=== PATIENT | female | born 1955 | race African-American/Black ===

== ENCOUNTER 2018-05-22 15:35 | Inpatient (IN) | payer OTHER ==
[2018-05-22 19:37] VITALS: BMI 27.9
--- NOTE | 2018-05-22 20:42 | HP ---
CIWA Score - Admission Criteria OASAS Guidelines: Admission for Medically Managed Detox: Requires at least one of the followin. CIWA greater than 12 2. Seizures within the past 24 hours 3. Delirium tremens within the past 24 hours 4. Hallucinations within the past 24 hours 5. Acute intervention needed for co occurring medical disorder 6. Acute intervention needed for co occurring psychiatric disorder 7. Severe withdrawal that cannot be handled at a lower level of care (continued vomiting, continued diarrhea, abnormal vital signs) requiring intravenous medication and/or fluids 8. Admission ROS S - HPI Chief Complaint: " I am here for rehab" Allergies/Adverse Reactions: Allergies Allergy/AdvReac Type Severity Reaction Status Date / Time No Known Allergies Allergy Verified 05/22/18 20:37 History of Present Illness: 63 yo female with hx of alcohol dependence, patient reports was discharged today from [facility] after suffering DTS d/t alcohol withdrawal. PMHX: HTN, Gastric Ulcer, GERD, Anemia, Vertigo, OA (b/l), chronic back pain, CO ( 15 years ago), asthma, depression, insomnia. Denies suicidal / homicidal ideation. Denies hx of seizures, reports hx frequent falls and blackouts r/t to alcohol use. Exam Limitations: No Limitations - Ebola screening Have you traveled outside of the country in the last 21 days: No Have you had contact with anyone from an Ebola affected area: No Have you been sick,other than usual withdrawal symptoms: No - Review of Systems Constitutional: Loss of Appetite, Night Sweats ("going through menopause"), Changes in sleep, Other (" hot flashes") EENT: reports: Cataracts (left eye) Respiratory: reports: See HPI Cardiac: reports: No Symptoms Reported GI: reports: Poor Appetite, Poor Fluid Intake : reports: No Symptoms Reported Musculoskeletal: reports: See HPI, Back Pain, Joint Pain Integumentary: reports: No Symptoms Reported Neuro: reports: See HPI, Dizziness Endocrine: reports: Increased Thirst Hematology: reports: Anemia Psychiatric: reports: Orientated x3, Anxious Other Systems: Reviewed and Negative Patient History - Patient Medical History Hx Anemia: Yes Hx Asthma: Yes Hx Chronic Obstructive Pulmonary Disease (COPD): No Hx Cancer: No Hx Cardiac Disorders: No (hx of CO 15 years ago ) Hx Congestive Heart Failure: No Hx Hypertension: Yes Hx Hypercholesterolemia: No Hx Pacemaker: No HX Cerebrovascular Accident: No Hx Seizures: No Hx Dementia: No Hx Diabetes: No Hx Gastrointestinal Disorders: Yes (GERD, GAstric Ulcer ) Hx Liver Disease: No Hx Genitourinary Disorders: No Hx Sexually Transmitted Disorders: No Hx Renal Disease (ESRD): No Hx Thyroid Disease: No Hx Human Immunodeficiency Virus (HIV): No Hx Hepatitis C: No Hx Depression: Yes Hx Suicide Attempt: No Hx Bipolar Disorder: No Hx Schizophrenia: No Other Medical History: hx of HSV 1 - Patient Surgical History Past Surgical History: Yes Other Surgical History: tubal ligation x 40 years ago - PPD History Previous Implant?: No Documented Results: Negative w/o proof PPD to be Administered?: Yes - Reproductive History Patient is a Female of Child Bearing Age (11 -55 yrs old): No - Smoking Cessation Smoking history: Never smoked Hx Chewing Tobacco Use: No Initiated information on smoking cessation: No - Substance & Tx. History Hx Alcohol Use: Yes Hx Substance Use: Yes Substance Use Type: Alcohol Hx Substance Use Treatment: Yes (Completed detox at [facility] ) - Substances Abused alcohol Route: Oral Frequency: Daily Amount used: one fith of liquor Age of first use: 21 Date of Last Use: 05/12/18 Family Disease History - Family Disease History Family Disease History: Other: Father (alcoholism, liver cirrhosis ), Mother ( alcoholism ), Brother (alcoholism ), Sister (alcoholism ) Admission Physical Exam S - Vital Signs Vital Signs: Vital Signs - 24 hr 05/22/18 19:24 Temperature 98.4 F Pulse Rate 85 Respiratory 18 Rate Blood Pressure 115/75 - Physical General Appearance: Yes: Nourished, Appropriately Dressed, Anxious HEENTM: Yes: EOMI, Hearing grossly Normal, Normal ENT Inspection, Normocephalic , Normal Voice, JOHN, Pharynx Normal, Tm's normal Respiratory: Yes: Chest Non-Tender, Lungs Clear, Normal Breath Sounds, No Respiratory Distress, No Accessory Muscle Use Neck: Yes: Within Normal Limits Breast: Yes: Breast Exam Deferred Cardiology: Yes: Regular Rhythm, Regular Rate Abdominal: Yes: Normal Bowel Sounds, Non Tender, Flat, Soft Genitourinary: Yes: Within Normal Limits Back: Yes: Normal Inspection, Vertebral Tenderness (patient reorts chronic pain d/t herniated disc) Musculoskeletal: Yes: full range of Motion, Gait Steady, Pelvis Stable, Back pain, Other (uses rollator to ambulate) Extremities: Yes: Normal Capillary Refill, Normal Inspection, Normal Range of Motion Neurological: Yes: display director II-XII NML intact, Fully Oriented, Alert, Motor Strength 5/5, Depressed Affect Integumentary: Yes: Normal Color, Dry, Warm Lymphatic: Yes: Within Normal Limits - Diagnostic (1) Alcohol dependence Current Visit: Yes Status: Acute Qualifiers: Substance use status: uncomplicated Qualified Code(s): F10.20 - Alcohol dependence, uncomplicated (2) Walker as ambulation aid Current Visit: Yes Status: Chronic (3) Asthma Current Visit: Yes Status: Chronic Qualifiers: Asthma severity: mild Asthma complication type: unspecified (4) Hypertension Current Visit: Yes Status: Chronic Qualifiers: Hypertension type: essential hypertension Qualified Code(s): I10 - Essential (primary) hypertension (5) Hx of myocardial infarction Current Visit: Yes Status: Chronic (6) GERD (gastroesophageal reflux disease) Current Visit: Yes Status: Chronic Qualifiers: Esophagitis presence: without esophagitis Qualified Code(s): K21.9 - Gastro -esophageal reflux disease without esophagitis (7) Chronic back pain Current Visit: Yes Status: Acute (8) Arthritis Current Visit: Yes Status: Chronic BHS Breath Alcohol Content Breath Alcohol Content: 0 Urine Pregancy Test - Result Urine Test Results: Negative- NO Line Present Urine Drug Screen - Results Drug Screen Negative: No Urine Drug Screen Results: MET-Methamphetamine Inpatient Rehab Admission - Rehab Decision to Admit Inpatient rehab admission?: Yes - Initial Determination Are CD services needed?: Yes Free of communicable disease: Yes Not in need of hospitalization: Yes - Rehab Admission Criteria Previous failed treatment: Yes Poor recovery environment: Yes Comorbidities: Yes Lacks judgement: Yes Patient is meeting Inpatient Rehab admission criteria:: Yes
[2018-05-22] MEDS ORDERED: ALBUTEROL SO4 2.5/IPRATROPIUM 0.5 INH SOL 3 ML VIAL.NEB. NEB PRN (20:59)
[2018-05-22] MEDS ORDERED: P-EPHED 60MG/TRIPROLIDI 2.5MG TABLET PO PRN (21:01)
[2018-05-22] MEDS ORDERED: MAGNESIUM CITRATE 300 ML BOTTLE PO PRN (21:01)
[2018-05-22] MEDS ORDERED: hydrOXYzine PAMOATE 25 MG CAPSULE (FP) PO PRN (21:01)
[2018-05-22] MEDS ORDERED: guaiFENesin/D-METHORPHAN HB 10 ML UNIT-DOSE CUPS PO PRN (21:01)
[2018-05-22] MEDS ORDERED: ACETAMINOPHEN 325 MG TABLET (FP) PO PRN (21:01)
[2018-05-22] MEDS ORDERED: IBUPROFEN 400 MG TABLET (FP) PO PRN (21:01)
[2018-05-22] MEDS ORDERED: MAG HYDROX/AL HYDROX/SIMETH 30 ML UNIT-DOSE CUP PO PRN (21:01)
[2018-05-22] MEDS ORDERED: MENTHOL/PHENOL 1 EACH UD MM PRN (21:01)
[2018-05-22] MEDS ORDERED: MAGNESIUM HYDROX 2400MG/30ML ORAL SUSPENSION 30 ML CUP PO PRN (21:01)
[2018-05-22] MEDS ORDERED: LOPERAMIDE HCL 2 MG CAPSULE PO PRN (21:01)
[2018-05-22] MEDS ORDERED: TUBERCULIN PPD 5 TU/0.1ML VIAL ID ONE (23:53)
[2018-05-22] MEDS: LABETALOL HCL 100 MG TABLET (FP) PO SCH (23:54)
[2018-05-22] MEDS: THIAMINE HCL 100 MG TABLET (FP) PO SCH (23:55)
[2018-05-22] MEDS: LIDOCAINE PATCH REMOVAL MC SCH (23:55)
[2018-05-22] MEDS: ALBUTEROL SO4 8 GM HFA INHALER IH SCH (23:56)
[2018-05-22] MEDS: BUDESONIDE/FORMETEROL FUMARATE 160/4.5 mcg INHALER IH SCH (23:58)
[2018-05-23] MEDS: ALBUTEROL SO4 8 GM HFA INHALER IH SCH ×3 (01:34→11:40)
[2018-05-23] MEDS ORDERED: ALBUTEROL SO4 8 GM HFA INHALER IH PRN (09:50)
[2018-05-23] MEDS: ASPIRIN 81 MG CHEWABLE TABLETS PO SCH (09:52)
[2018-05-23] MEDS: LABETALOL HCL 100 MG TABLET (FP) PO SCH ×2 (09:52→21:46)
[2018-05-23] MEDS: PRENATAL VITAMINS W/ FOLIC ACID TABLET (FP) PO SCH (09:52)
[2018-05-23] MEDS: NIFEdipine E.R. 90 MG TABLET (FP) PO SCH (09:53)
[2018-05-23] MEDS: LIDOCAINE 5% TOPICAL PATCH TP SCH (09:54)
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
[2018-05-23] MEDS ORDERED: PANTOPRAZOLE 20 MG TABLET (FP) PO SCH (10:00)
[2018-05-23] MEDS ORDERED: COLLOIDAL OATMEAL 1 BAR EACH TP PRN (10:33)
[2018-05-23] MEDS ORDERED: TRIMETHOBENZAMIDE HCL 200MG/2ML INJ IM ONE (10:56)
[2018-05-23] MEDS ORDERED: ONDANSETRON 4 MG TABLET PO PRN (10:57)
--- NOTE | 2018-05-23 11:42 | EKG ---
Test Reason : Blood Pressure : / mmHG Vent. Rate : 075 BPM Atrial Rate : 075 BPM P-R Int : 194 ms QRS Dur : 078 ms QT Int : 434 ms P-R-T Axes : 046 001 037 degrees QTc Int : 484 ms NORMAL SINUS RHYTHM NORMAL ECG NO PREVIOUS ECGS AVAILABLE Confirmed by Valerio Amanda MD ([id number]) on 05/23/2018 11:41:42 AM Referred By: JOHN JEFFERS Confirmed By:Valerio Amanda MD
[2018-05-23] MEDS: LORATADINE 10 MG TABLET PO SCH (11:55)
[2018-05-23 12:42] LABS: ALBUMIN 3.6 g/dl (3.4-5.0); ALK PHOS 43 U/L (45-117); ANION GAP 6 MMOL/L (8-16); BILIRUBIN,TOTAL 0.4 mg/dL (0.2-1); BLOOD UREA NITROGEN 10 mg/dL (7-18); CALCIUM 9.3 mg/dL (8.5-10.1); CHLORIDE 104 mmol/L (98-107); CO2 30 mmol/L (21-32); CREATININE 0.7 mg/dL (0.55-1.3); GLUCOSE,RANDOM 85 mg/dL (74-106); POTASSIUM 4.3 mmol/L (3.5-5.1); SGOT/AST 99 U/L (15-37); SGPT/ALT 56 U/L (13-61); SODIUM 140 mmol/L (136-145)
[2018-05-23 12:51] LABS: URINE APPEARANCE CLEAR; URINE BILIRUBIN NEGATIVE (<2.0 mg/dL); URINE COLOR YELLOW; URINE GLUCOSE (UA) NEGATIVE (NEGATIVE); URINE KETONE NEGATIVE (NEGATIVE); URINE LEUK ESTERASE NEGATIVE (NEGATIVE); URINE NITRITE NEGATIVE (NEGATIVE); URINE PROTEIN NEGATIVE (NEGATIVE)
[2018-05-23 13:10] LABS: HEMATOCRIT 33.8 % (32.4-45.2); HEMOGLOBIN 11.8 GM/dL (10.7-15.3); MCH 38.4 pg (25.7-33.7); MCHC 34.9 g/dl (32.0-36.0); MEAN CELL VOLUME 109.8 fl (80-96); MEAN PLT VOLUME 7.5 fl (7.5-11.1); PLATELET COUNT 227 K/MM3 (134-434); RBC 3.08 M/mm3 (3.60-5.2); RDW 16.8 % (11.6-15.6); WHITE BLOOD COUNT 5.2 K/mm3 (4.0-10.0)
[2018-05-23] MEDS: BUDESONIDE/FORMETEROL FUMARATE 160/4.5 mcg INHALER IH SCH ×2 (13:10→21:46)
[2018-05-23 13:14] LABS: EPI CELLS RARE /HPF (FEW); URINE MUCUS RARE
[2018-05-23] MEDS: SODIUM CHLORIDE NASAL SPRAY 44 ML BOTTLE NS SCH ×2 (13:14→21:46)
--- NOTE | 2018-05-23 13:38 | PN ---
[facility] Progress Note Note: PATIENT SEEN FOR DISCUSSION OF STARTING VIVITROL AND FOR C/O NAUSEA AND VOMITING. PATIENT EVALUATED WHILE IN BED. ALERT AND ORIENTED X 3, +SWEATING. DENIES CHEST PAIN, SOB AND DIZZINESS. ADMITTED TO REHAB 05/22/18 FOR ETOH DEPENDENCE AFTER BEING DETOXED AT [facility]. PATIENT D/C WITH NALTREXONE PRESCRIPTION BUT DID NOT START MEDICATION. PATIENT STATES SHE IS MOTIVATED TO START VIVITROL AND GROUP TREATMENT. Laboratory Tests 05/23/18 05/23/18 05/23/18 08:30 08:30 08:30 WBC 5.2 RBC 3.08 L Hgb 11.8 Hct 33.8 MCV 109.8 H MCH 38.4 H MCHC 34.9 RDW 16.8 H Plt Count 227 MPV 7.5 Sodium 140 Potassium 4.3 Chloride 104 Carbon Dioxide 30 Anion Gap 6 L BUN 10 Creatinine 0.7 Creat Clearance w eGFR > 60 POC Glucometer Random Glucose 85 Calcium 9.3 Total Bilirubin 0.4 AST 99 H ALT 56 Alkaline Phosphatase 43 L Total Protein 7.0 Albumin 3.6 Urine Color Urine Appearance Urine pH Ur Specific [place] Urine Protein Urine Glucose (UA) Urine Ketones Urine Blood Urine Nitrite Urine Bilirubin Urine Urobilinogen Ur Leukocyte Esterase Urine WBC (Auto) Urine RBC (Auto) Ur Epithelial Cells Urine Mucus RPR Titer Nonreactive 05/23/18 05/23/18 10:00 11:26 WBC RBC Hgb Hct MCV MCH MCHC RDW Plt Count MPV Sodium Potassium Chloride Carbon Dioxide Anion Gap BUN Creatinine Creat Clearance w eGFR POC Glucometer 137 Random Glucose Calcium Total Bilirubin AST ALT Alkaline Phosphatase Total Protein Albumin Urine Color Yellow Urine Appearance Clear Urine pH 6.0 Ur Specific [place] 1.013 Urine Protein Negative Urine Glucose (UA) Negative Urine Ketones Negative Urine Blood 1+ H Urine Nitrite Negative Urine Bilirubin Negative Urine Urobilinogen 2.0 H Ur Leukocyte Esterase Negative Urine WBC (Auto) 2 Urine RBC (Auto) 1 Ur Epithelial Cells Rare Urine Mucus Rare RPR Titer Vital Signs - 24 hr 05/22/18 05/23/18 05/23/18 19:24 00:05 03:30 Temperature 98.4 F 98.0 F Pulse Rate 85 84 Respiratory 18 18 18 Rate Blood Pressure 115/75 132/84 05/23/18 05/23/18 05/23/18 07:34 09:17 11:21 Temperature 97.6 F 97.5 F L Pulse Rate 78 81 97 H Respiratory 18 18 Rate Blood Pressure 118/76 118/81 187/117 H 05/23/18 12:05 Temperature Pulse Rate 85 Respiratory Rate Blood Pressure 149/94 PE: ALERT AND ORIENTED X 3 SKIN +DIAPHORETIC CAR S1S2 RRR, BP 187/117 (RIGHT AFTER VOMITING) RESP CTA BL EXT NO TREMORS OBSERVED A/P: N/V EPISODIC HTN ETOH DEPENDENCE TIGAN 2OOMG IM X ONE GIVEN ZOFRAN ORDERED PRN PATIENT GIVEN LABETOLOL ORDERED, REPEAT BP 1/2 HR AFTER VOMITING 149/94 PATIENT REFERRED TO COUNSELING TO CONNECT TO MD/OUT PATIENT PROGRAM THAT CAN CONTINUE VIVITROL POST DISCHARGE WILL MONITOR CLINICALLY DUE TO ELEVATED BP X 24 HRS, IF STABLE AND CONNECTED TO PROGRAM, WILL START NALTREXONE IN AM
[2018-05-23] MEDS ORDERED: RANITIDINE HCL 150 MG TABLET (FP) PO ONE (14:53)
--- NOTE | 2018-05-23 16:02 | PN ---
[facility] Progress Note Note: PT C/O CHRONIC DRY SKIN-ECZEMA AND WANTS AVEENO SOAP. PT REPORTS HX OF RIGHT VEIN SURGERY X 2 AND SCHEDULED TO DO LEFT LEG LATER. REQUESTING JACOB BANDAGE BECAUSE SHE FORGOT HER STOCKINGS. REPORTS HX OF CHRONIC NASAL CONGESTION AND ON FLONASE AND LORATADINE Vital Signs 05/23/18 05/23/18 05/23/18 09:17 11:21 12:05 Temperature 97.5 F L Pulse Rate 81 97 H 85 Respiratory 18 Rate Blood Pressure 118/81 187/117 H 149/94 Laboratory Tests 05/23/18 05/23/18 05/23/18 08:30 08:30 08:30 WBC 5.2 RBC 3.08 L Hgb 11.8 Hct 33.8 MCV 109.8 H MCH 38.4 H MCHC 34.9 RDW 16.8 H Plt Count 227 MPV 7.5 Sodium 140 Potassium 4.3 Chloride 104 Carbon Dioxide 30 Anion Gap 6 L BUN 10 Creatinine 0.7 Creat Clearance w eGFR > 60 POC Glucometer Random Glucose 85 Calcium 9.3 Total Bilirubin 0.4 AST 99 H ALT 56 Alkaline Phosphatase 43 L Total Protein 7.0 Albumin 3.6 Urine Color Urine Appearance Urine pH Ur Specific [place] Urine Protein Urine Glucose (UA) Urine Ketones Urine Blood Urine Nitrite Urine Bilirubin Urine Urobilinogen Ur Leukocyte Esterase Urine WBC (Auto) Urine RBC (Auto) Ur Epithelial Cells Urine Mucus RPR Titer Nonreactive 05/23/18 05/23/18 10:00 11:26 WBC RBC Hgb Hct MCV MCH MCHC RDW Plt Count MPV Sodium Potassium Chloride Carbon Dioxide Anion Gap BUN Creatinine Creat Clearance w eGFR POC Glucometer 137 Random Glucose Calcium Total Bilirubin AST ALT Alkaline Phosphatase Total Protein Albumin Urine Color Yellow Urine Appearance Clear Urine pH 6.0 Ur Specific [place] 1.013 Urine Protein Negative Urine Glucose (UA) Negative Urine Ketones Negative Urine Blood 1+ H Urine Nitrite Negative Urine Bilirubin Negative Urine Urobilinogen 2.0 H Ur Leukocyte Esterase Negative Urine WBC (Auto) 2 Urine RBC (Auto) 1 Ur Epithelial Cells Rare Urine Mucus Rare RPR Titer NAD OOB AMBULATING VARICOSE VEINS LOWER EXTREMITIES HX ALLERGIC RHINITIS ECZEMA PLAN:ELEVATE LEG IN BED KARAN STOCKINGS OR JACOB IF NOT AVAILABLE AVEENO SOAP CLARITIN 10 MG PO DAILY
[2018-05-23] MEDS: ONDANSETRON *ODT* 4 MG TABLET SL PRN (16:28)
[2018-05-23] MEDS: THIAMINE HCL 100 MG TABLET (FP) PO SCH (21:44)
[2018-05-23] MEDS: LIDOCAINE PATCH REMOVAL MC SCH (21:46)
[2018-05-23] MEDS: RANITIDINE HCL 150 MG TABLET (FP) PO SCH (21:46)
[2018-05-23] MEDS: MELATONIN 5 MG TABLETS PO PRN (21:47)
[2018-05-24] MEDS ORDERED: PT OWN MED DRAWER 7, Y5N ONE (08:27)
[2018-05-24] MEDS ORDERED: MINERAL OIL/PETROLAT/WATER TOPICAL CREAM 113 GM JAR TP SCH (10:00)
[2018-05-24] MEDS: LORATADINE 10 MG TABLET PO SCH (10:08)
[2018-05-24] MEDS: ASPIRIN 81 MG CHEWABLE TABLETS PO SCH (10:08)
[2018-05-24] MEDS: LIDOCAINE 5% TOPICAL PATCH TP SCH (10:10)
[2018-05-24] MEDS: LABETALOL HCL 100 MG TABLET (FP) PO SCH ×2 (10:10→22:03)
[2018-05-24] MEDS: NIFEdipine E.R. 90 MG TABLET (FP) PO SCH (10:11)
[2018-05-24] MEDS: PRENATAL VITAMINS W/ FOLIC ACID TABLET (FP) PO SCH (10:11)
[2018-05-24] MEDS: SODIUM CHLORIDE NASAL SPRAY 44 ML BOTTLE NS SCH (10:11)
[2018-05-24] MEDS: RANITIDINE HCL 150 MG TABLET (FP) PO SCH ×2 (10:12→22:03)
[2018-05-24] MEDS: FLUoxetine HCL 20 MG CAPSULE (FP) PO SCH (10:12)
[2018-05-24] MEDS: BUDESONIDE/FORMETEROL FUMARATE 160/4.5 mcg INHALER IH SCH ×2 (10:13→22:03)
[2018-05-24] MEDS: OMEPRAZOLE PO SCH (13:00)
[2018-05-24] MEDS ORDERED: FOLIC ACID PO SCH (15:45)
[2018-05-24] MEDS: ATORVASTATIN CA 10 MG TABLET (FP) PO SCH (22:03)
[2018-05-24] MEDS: THIAMINE HCL 100 MG TABLET (FP) PO SCH (22:04)
[2018-05-24] MEDS: MELATONIN 5 MG TABLETS PO PRN (22:05)
[2018-05-24] MEDS: LIDOCAINE PATCH REMOVAL MC SCH (22:05)
[2018-05-25] MEDS: LORATADINE 10 MG TABLET PO SCH (10:23)
[2018-05-25] MEDS: NIFEdipine E.R. 90 MG TABLET (FP) PO SCH (10:23)
[2018-05-25] MEDS: LABETALOL HCL 100 MG TABLET (FP) PO SCH ×2 (10:23→21:28)
[2018-05-25] MEDS: RANITIDINE HCL 150 MG TABLET (FP) PO SCH ×2 (10:23→21:28)
[2018-05-25] MEDS: PRENATAL VITAMINS W/ FOLIC ACID TABLET (FP) PO SCH (10:23)
[2018-05-25] MEDS: FLUoxetine HCL 20 MG CAPSULE (FP) PO SCH (10:23)
[2018-05-25] MEDS: OMEPRAZOLE PO SCH (10:24)
[2018-05-25] MEDS: FOLIC ACID PO SCH (10:25)
[2018-05-25] MEDS: ASPIRIN 81 MG CHEWABLE TABLETS PO SCH (10:26)
[2018-05-25] MEDS ORDERED: PT OWN MED DRAWER 7, Y5N ONE (10:26)
[2018-05-25] MEDS: BUDESONIDE/FORMETEROL FUMARATE 160/4.5 mcg INHALER IH SCH ×2 (10:27→21:29)
[2018-05-25] MEDS: LIDOCAINE 5% TOPICAL PATCH TP SCH (10:28)
[2018-05-25] MEDS: FLUTICASONE PROP 0.05% 16 GM NASAL SPRAY NS SCH (10:56)
[2018-05-25] MEDS: ATORVASTATIN CA 10 MG TABLET (FP) PO SCH (21:28)
[2018-05-25] MEDS: LIDOCAINE PATCH REMOVAL MC SCH (21:29)
[2018-05-25] MEDS: MELATONIN 5 MG TABLETS PO PRN (21:29)
[2018-05-25] MEDS: THIAMINE HCL 100 MG TABLET (FP) PO SCH (22:16)
[2018-05-26] MEDS ORDERED: ALBUTEROL SO4 2.5/IPRATROPIUM 0.5 INH SOL 3 ML VIAL.NEB. NEB PRN (06:47)
[2018-05-26] MEDS: LIDOCAINE 5% TOPICAL PATCH TP SCH (10:14)
[2018-05-26] MEDS: RANITIDINE HCL 150 MG TABLET (FP) PO SCH (10:15)
[2018-05-26] MEDS: ASPIRIN 81 MG CHEWABLE TABLETS PO SCH (10:17)
[2018-05-26] MEDS: FOLIC ACID PO SCH (10:17)
[2018-05-26] MEDS: FLUoxetine HCL 20 MG CAPSULE (FP) PO SCH (10:17)
[2018-05-26] MEDS: NIFEdipine E.R. 90 MG TABLET (FP) PO SCH (10:18)
[2018-05-26] MEDS: LORATADINE 10 MG TABLET PO SCH (10:18)
[2018-05-26] MEDS: PRENATAL VITAMINS W/ FOLIC ACID TABLET (FP) PO SCH (10:18)
[2018-05-26] MEDS: LABETALOL HCL 100 MG TABLET (FP) PO SCH ×2 (10:18→21:38)
[2018-05-26] MEDS: FLUTICASONE PROP 0.05% 16 GM NASAL SPRAY NS SCH (10:19)
[2018-05-26] MEDS: BUDESONIDE/FORMETEROL FUMARATE 160/4.5 mcg INHALER IH SCH ×2 (10:19→21:38)
[2018-05-26] MEDS: OMEPRAZOLE PO SCH (11:00)
[2018-05-26] MEDS ORDERED: PT OWN MED DRAWER 7, Y5N ONE (19:51)
[2018-05-26] MEDS: THIAMINE HCL 100 MG TABLET (FP) PO SCH (21:39)
[2018-05-26] MEDS: ATORVASTATIN CA 10 MG TABLET (FP) PO SCH (21:39)
[2018-05-26] MEDS: LIDOCAINE PATCH REMOVAL MC SCH (22:17)
[2018-05-27] MEDS ORDERED: PT OWN MED DRAWER 7, Y5N ONE ×2 (05:55→07:53)
[2018-05-27] MEDS: OMEPRAZOLE PO SCH (07:13)
[2018-05-27] MEDS: FOLIC ACID PO SCH (10:18)
[2018-05-27] MEDS: FLUTICASONE PROP 0.05% 16 GM NASAL SPRAY NS SCH (10:18)
[2018-05-27] MEDS: ASPIRIN 81 MG CHEWABLE TABLETS PO SCH (10:18)
[2018-05-27] MEDS: NIFEdipine E.R. 90 MG TABLET (FP) PO SCH (10:19)
[2018-05-27] MEDS: FLUoxetine HCL 20 MG CAPSULE (FP) PO SCH (10:19)
[2018-05-27] MEDS: PRENATAL VITAMINS W/ FOLIC ACID TABLET (FP) PO SCH (10:19)
[2018-05-27] MEDS: LORATADINE 10 MG TABLET PO SCH (10:19)
[2018-05-27] MEDS: LABETALOL HCL 100 MG TABLET (FP) PO SCH ×2 (10:19→21:33)
[2018-05-27] MEDS: BUDESONIDE/FORMETEROL FUMARATE 160/4.5 mcg INHALER IH SCH ×2 (10:19→21:33)
[2018-05-27] MEDS: LIDOCAINE 5% TOPICAL PATCH TP SCH (10:20)
[2018-05-27] MEDS: THIAMINE HCL 100 MG TABLET (FP) PO SCH (21:32)
[2018-05-27] MEDS: ATORVASTATIN CA 10 MG TABLET (FP) PO SCH (21:33)
[2018-05-27] MEDS: LIDOCAINE PATCH REMOVAL MC SCH (21:33)
[2018-05-28] MEDS ORDERED: PT OWN MED DRAWER 7, Y5N ONE ×2 (06:02→07:55)
[2018-05-28] MEDS: OMEPRAZOLE PO SCH (06:33)
[2018-05-28] MEDS: BUDESONIDE/FORMETEROL FUMARATE 160/4.5 mcg INHALER IH SCH ×2 (10:05→21:10)
[2018-05-28] MEDS: FOLIC ACID PO SCH (10:05)
[2018-05-28] MEDS: FLUTICASONE PROP 0.05% 16 GM NASAL SPRAY NS SCH (10:05)
[2018-05-28] MEDS: LABETALOL HCL 100 MG TABLET (FP) PO SCH ×2 (10:06→21:10)
[2018-05-28] MEDS: ASPIRIN 81 MG CHEWABLE TABLETS PO SCH (10:06)
[2018-05-28] MEDS: FLUoxetine HCL 20 MG CAPSULE (FP) PO SCH (10:06)
[2018-05-28] MEDS: NIFEdipine E.R. 90 MG TABLET (FP) PO SCH (10:06)
[2018-05-28] MEDS: PRENATAL VITAMINS W/ FOLIC ACID TABLET (FP) PO SCH (10:06)
[2018-05-28] MEDS: LORATADINE 10 MG TABLET PO SCH (10:06)
[2018-05-28] MEDS: LIDOCAINE 5% TOPICAL PATCH TP SCH (10:07)
[2018-05-28] MEDS: LIDOCAINE PATCH REMOVAL MC SCH (21:08)
[2018-05-28] MEDS: ATORVASTATIN CA 10 MG TABLET (FP) PO SCH (21:10)
[2018-05-28] MEDS: MELATONIN 5 MG TABLETS PO PRN (21:12)
[2018-05-28] MEDS: THIAMINE HCL 100 MG TABLET (FP) PO SCH (21:13)
[2018-05-29] MEDS: OMEPRAZOLE PO SCH (06:32)
[2018-05-29] MEDS ORDERED: PT OWN MED DRAWER 7, Y5N ONE ×4 (07:54→22:15)
[2018-05-29] MEDS: ASPIRIN 81 MG CHEWABLE TABLETS PO SCH (09:56)
[2018-05-29] MEDS: FLUTICASONE PROP 0.05% 16 GM NASAL SPRAY NS SCH (09:57)
[2018-05-29] MEDS: LORATADINE 10 MG TABLET PO SCH (09:57)
[2018-05-29] MEDS: FOLIC ACID PO SCH (09:58)
[2018-05-29] MEDS: LIDOCAINE 5% TOPICAL PATCH TP SCH (09:59)
[2018-05-29] MEDS: NIFEdipine E.R. 90 MG TABLET (FP) PO SCH (09:59)
[2018-05-29] MEDS: LABETALOL HCL 100 MG TABLET (FP) PO SCH ×2 (09:59→21:12)
[2018-05-29] MEDS: PRENATAL VITAMINS W/ FOLIC ACID TABLET (FP) PO SCH (09:59)
[2018-05-29] MEDS: FLUoxetine HCL 20 MG CAPSULE (FP) PO SCH (10:00)
[2018-05-29] MEDS: BUDESONIDE/FORMETEROL FUMARATE 160/4.5 mcg INHALER IH SCH ×2 (10:00→21:13)
[2018-05-29] MEDS: THIAMINE HCL 100 MG TABLET (FP) PO SCH (21:12)
[2018-05-29] MEDS: ATORVASTATIN CA 10 MG TABLET (FP) PO SCH (21:12)
[2018-05-29] MEDS: MELATONIN 5 MG TABLETS PO PRN (21:13)
[2018-05-29] MEDS: LIDOCAINE PATCH REMOVAL MC SCH (21:13)
[2018-05-30] MEDS: OMEPRAZOLE PO SCH (06:15)
[2018-05-30] MEDS: NIFEdipine E.R. 90 MG TABLET (FP) PO SCH (10:15)
[2018-05-30] MEDS: LORATADINE 10 MG TABLET PO SCH (10:15)
[2018-05-30] MEDS: PRENATAL VITAMINS W/ FOLIC ACID TABLET (FP) PO SCH (10:15)
[2018-05-30] MEDS: LABETALOL HCL 100 MG TABLET (FP) PO SCH ×2 (10:15→21:00)
[2018-05-30] MEDS: ASPIRIN 81 MG CHEWABLE TABLETS PO SCH (10:15)
[2018-05-30] MEDS: FLUoxetine HCL 20 MG CAPSULE (FP) PO SCH (10:15)
[2018-05-30] MEDS: FLUTICASONE PROP 0.05% 16 GM NASAL SPRAY NS SCH (10:15)
[2018-05-30] MEDS: BUDESONIDE/FORMETEROL FUMARATE 160/4.5 mcg INHALER IH SCH ×2 (10:17→21:00)
[2018-05-30] MEDS: FOLIC ACID PO SCH (10:17)
[2018-05-30] MEDS: LIDOCAINE 5% TOPICAL PATCH TP SCH (10:18)
[2018-05-30] MEDS ORDERED: PT OWN MED DRAWER 7, Y5N ONE (12:18)
--- NOTE | 2018-05-30 13:20 | PN ---
S Progress Note (SOAP) Subjective: Patient states that she has low potassium levels because of "a hole in her intestines as a result of diverticulitis." Her potassium level upon admission was 4.3 CMP Sodium 140 mmol/L (136-145) 05/23/18 08:30 Potassium 4.3 mmol/L (3.5-5.1) 05/23/18 08:30 Chloride 104 mmol/L (98-107) 05/23/18 08:30 Carbon Dioxide 30 mmol/L (21-32) 05/23/18 08:30 Anion Gap 6 MMOL/L (8-16) L 05/23/18 08:30 BUN 10 mg/dL (7-18) 05/23/18 08:30 Creatinine 0.7 mg/dL (0.55-1.3) 05/23/18 08:30 Creat Clearance w eGFR > 60 (>60) 05/23/18 08:30 POC Glucometer 137 UNITS (80-120) 05/23/18 11:26 Random Glucose 85 mg/dL (74-106) 05/23/18 08:30 Calcium 9.3 mg/dL (8.5-10.1) 05/23/18 08:30 Total Bilirubin 0.4 mg/dL (0.2-1) 05/23/18 08:30 AST 99 U/L (15-37) H 05/23/18 08:30 ALT 56 U/L (13-61) 05/23/18 08:30 Alkaline Phosphatase 43 U/L (45-117) L 05/23/18 08:30 Total Protein 7.0 g/dl (6.4-8.2) 05/23/18 08:30 Albumin 3.6 g/dl (3.4-5.0) 05/23/18 08:30 CMP Sodium 140 mmol/L (136-145) 05/23/18 08:30 Potassium 4.3 mmol/L (3.5-5.1) 05/23/18 08:30 Chloride 104 mmol/L (98-107) 05/23/18 08:30 Carbon Dioxide 30 mmol/L (21-32) 05/23/18 08:30 Anion Gap 6 MMOL/L (8-16) L 05/23/18 08:30 BUN 10 mg/dL (7-18) 05/23/18 08:30 Creatinine 0.7 mg/dL (0.55-1.3) 05/23/18 08:30 Creat Clearance w eGFR > 60 (>60) 05/23/18 08:30 POC Glucometer 137 UNITS (80-120) 05/23/18 11:26 Random Glucose 85 mg/dL (74-106) 05/23/18 08:30 Calcium 9.3 mg/dL (8.5-10.1) 05/23/18 08:30 Total Bilirubin 0.4 mg/dL (0.2-1) 05/23/18 08:30 AST 99 U/L (15-37) H 05/23/18 08:30 ALT 56 U/L (13-61) 05/23/18 08:30 Alkaline Phosphatase 43 U/L (45-117) L 05/23/18 08:30 Total Protein 7.0 g/dl (6.4-8.2) 05/23/18 08:30 Albumin 3.6 g/dl (3.4-5.0) 05/23/18 08:30 Objective: 05/30/18 13:20 A & O x 3, S1 S2 regular; BP stable. Vital Signs (72 hours) 05/27/18 05/28/18 05/28/18 21:20 00:30 03:30 Temperature Pulse Rate 94 H Respiratory 18 18 Rate Blood Pressure 136/86 05/28/18 05/28/18 05/28/18 07:32 10:00 15:22 Temperature 98.1 F Pulse Rate 85 84 84 Respiratory 18 Rate Blood Pressure 101/65 126/74 120/79 05/29/18 05/29/18 05/29/18 00:30 03:30 07:13 Temperature 98.0 F Pulse Rate 82 Respiratory 18 18 18 Rate Blood Pressure 126/82 05/29/18 05/30/18 05/30/18 10:00 00:30 03:30 Temperature Pulse Rate 76 Respiratory 18 18 Rate Blood Pressure 127/74 05/30/18 05/30/18 06:58 09:18 Temperature 97.9 F Pulse Rate 75 87 Respiratory 18 18 Rate Blood Pressure 112/71 129/85 Vital Signs (72 hours) 05/27/18 05/28/18 05/28/18 21:20 00:30 03:30 Temperature Pulse Rate 94 H Respiratory 18 18 Rate Blood Pressure 136/86 05/28/18 05/28/18 05/28/18 07:32 10:00 15:22 Temperature 98.1 F Pulse Rate 85 84 84 Respiratory 18 Rate Blood Pressure 101/65 126/74 120/79 05/29/18 05/29/18 05/29/18 00:30 03:30 07:13 Temperature 98.0 F Pulse Rate 82 Respiratory 18 18 18 Rate Blood Pressure 126/82 05/29/18 05/30/18 05/30/18 10:00 00:30 03:30 Temperature Pulse Rate 76 Respiratory 18 18 Rate Blood Pressure 127/74 05/30/18 05/30/18 06:58 09:18 Temperature 97.9 F Pulse Rate 75 87 Respiratory 18 18 Rate Blood Pressure 112/71 129/85 05/30/18 13:22 Assessment: 05/30/18 13:24 No s/s of hyper or hypokalemia. Plan: Will draw potassium level, review and evaluate the need for further care.
[2018-05-30] MEDS ORDERED: PSYLLIUM 5.85 GM PACKET PO PRN (20:00)
[2018-05-30] MEDS: THIAMINE HCL 100 MG TABLET (FP) PO SCH (21:00)
[2018-05-30] MEDS: ATORVASTATIN CA 10 MG TABLET (FP) PO SCH (21:00)
[2018-05-30] MEDS: LIDOCAINE PATCH REMOVAL MC SCH (21:00)
[2018-05-30] MEDS: MELATONIN 5 MG TABLETS PO PRN (21:01)
[2018-05-30] MEDS ORDERED: TUBERCULIN PPD 5 TU/0.1ML VIAL ID ONE (23:24)
[2018-05-31] MEDS: OMEPRAZOLE PO SCH (06:23)
[2018-05-31] MEDS: ASPIRIN 81 MG CHEWABLE TABLETS PO SCH (10:06)
[2018-05-31] MEDS: FLUTICASONE PROP 0.05% 16 GM NASAL SPRAY NS SCH (10:06)
[2018-05-31] MEDS: LORATADINE 10 MG TABLET PO SCH (10:06)
[2018-05-31] MEDS: LIDOCAINE 5% TOPICAL PATCH TP SCH (10:06)
[2018-05-31] MEDS: LABETALOL HCL 100 MG TABLET (FP) PO SCH ×2 (10:07→21:15)
[2018-05-31] MEDS: FOLIC ACID PO SCH (10:07)
[2018-05-31] MEDS: NIFEdipine E.R. 90 MG TABLET (FP) PO SCH (10:08)
[2018-05-31] MEDS: FLUoxetine HCL 20 MG CAPSULE (FP) PO SCH (10:08)
[2018-05-31] MEDS: PRENATAL VITAMINS W/ FOLIC ACID TABLET (FP) PO SCH (10:08)
[2018-05-31] MEDS: BUDESONIDE/FORMETEROL FUMARATE 160/4.5 mcg INHALER IH SCH ×2 (10:09→21:17)
--- NOTE | 2018-05-31 15:03 | PN ---
[facility] Progress Note Note: Client was seen yesterday because she said she has chronic low potassium levels ; her potassium level upon admission was 4.2. Her potassium level was drawn yesterday and now it is 4.8.
[2018-05-31] MEDS ORDERED: PT OWN MED DRAWER 7, Y5N ONE (16:11)
[2018-05-31] MEDS: ATORVASTATIN CA 10 MG TABLET (FP) PO SCH (21:15)
[2018-05-31] MEDS: THIAMINE HCL 100 MG TABLET (FP) PO SCH (21:15)
[2018-05-31] MEDS: MELATONIN 5 MG TABLETS PO PRN (21:15)
[2018-05-31] MEDS: LIDOCAINE PATCH REMOVAL MC SCH (21:16)
[2018-06-01] MEDS: OMEPRAZOLE PO SCH (06:13)
[2018-06-01] MEDS: LORATADINE 10 MG TABLET PO SCH (10:21)
[2018-06-01] MEDS: NIFEdipine E.R. 90 MG TABLET (FP) PO SCH (10:21)
[2018-06-01] MEDS: PRENATAL VITAMINS W/ FOLIC ACID TABLET (FP) PO SCH (10:21)
[2018-06-01] MEDS: ASPIRIN 81 MG CHEWABLE TABLETS PO SCH (10:21)
[2018-06-01] MEDS: FLUoxetine HCL 20 MG CAPSULE (FP) PO SCH (10:21)
[2018-06-01] MEDS: LABETALOL HCL 100 MG TABLET (FP) PO SCH ×2 (10:21→21:28)
[2018-06-01] MEDS: FLUTICASONE PROP 0.05% 16 GM NASAL SPRAY NS SCH (10:22)
[2018-06-01] MEDS: FOLIC ACID PO SCH (10:22)
[2018-06-01] MEDS: LIDOCAINE 5% TOPICAL PATCH TP SCH (10:23)
[2018-06-01] MEDS: BUDESONIDE/FORMETEROL FUMARATE 160/4.5 mcg INHALER IH SCH ×2 (10:25→21:29)
[2018-06-01] MEDS ORDERED: PT OWN MED DRAWER 7, Y5N ONE (10:26)
[2018-06-01] MEDS: LIDOCAINE PATCH REMOVAL MC SCH (21:25)
[2018-06-01] MEDS: MELATONIN 5 MG TABLETS PO PRN (21:26)
[2018-06-01] MEDS: THIAMINE HCL 100 MG TABLET (FP) PO SCH (21:26)
[2018-06-01] MEDS: ATORVASTATIN CA 10 MG TABLET (FP) PO SCH (21:27)
[2018-06-02] MEDS ORDERED: PT OWN MED DRAWER 7, Y5N ONE ×2 (05:50→19:43)
[2018-06-02] MEDS: OMEPRAZOLE PO SCH (06:22)
[2018-06-02] MEDS: PRENATAL VITAMINS W/ FOLIC ACID TABLET (FP) PO SCH (09:55)
[2018-06-02] MEDS: FLUTICASONE PROP 0.05% 16 GM NASAL SPRAY NS SCH (09:55)
[2018-06-02] MEDS: BUDESONIDE/FORMETEROL FUMARATE 160/4.5 mcg INHALER IH SCH ×2 (09:55→22:30)
[2018-06-02] MEDS: LABETALOL HCL 100 MG TABLET (FP) PO SCH ×2 (09:55→22:30)
[2018-06-02] MEDS: LORATADINE 10 MG TABLET PO SCH (09:56)
[2018-06-02] MEDS: NIFEdipine E.R. 90 MG TABLET (FP) PO SCH (09:56)
[2018-06-02] MEDS: FLUoxetine HCL 20 MG CAPSULE (FP) PO SCH (09:56)
[2018-06-02] MEDS: ASPIRIN 81 MG CHEWABLE TABLETS PO SCH (09:56)
[2018-06-02] MEDS: LIDOCAINE 5% TOPICAL PATCH TP SCH (09:57)
[2018-06-02] MEDS: FOLIC ACID PO SCH (09:57)
[2018-06-02] MEDS ORDERED: COLLOIDAL OATMEAL 1 BAR EACH TP PRN (11:04)
--- NOTE | 2018-06-02 12:34 | PN ---
[facility] Progress Note Note: PATIENT SEEN TO RESUME NALTREXONE SHE HAS BEEN CONNECTED TO [facility] AND HAS APPOINTMENT FOR 06/06/18 AT 1PM. PATIENT WAS PREVIOUSLY TREATED FOR ETOH DEPENDENCE WITH ORAL NALTREXONE BUT RELAPSED. LAST PRESCRIPTION PER EXTERNAL HX SHOWED LAST PRESCRIPTION SENT 05/22/18 AFTER COMPLETING DETOX AT [facility]. PATIENT EXPRESSED DESIRE TO START VIVITROL,HOWEVER, NEEDED TO BE CONNECTED PRIOR TO STARTING TREATMENT. PATIENT STATES SHE IS VERY MOTIVATED TO ABSTAIN FROM ETOH AND WILL BE LIVING WITH HER SON WHICH WILL HELP WITH HER SOBRIETY. PATIENT IS FOR DISCHARGE ON Tuesday06/05/18 AND WILL CONTINUE WITH PROCESS TO START VIVITROL AT [facility]. PATIENT IS AWARE THAT INJECTION WILL BE GIVEN 1-2 WEEK POST DISCHARGE AND AGREES WITH PLAN. PATIENT DENIES ANY MEDICAL COMPLAINTS TODAY. NO CHEST PAIN, SOB, DIZZINESS, FEVER, DYSURIA, FLANK PAIN OR BODY ACHES REPORTED. WILL START ORAL NALTREXONE 50MG DAILY STARTING TOMORROW. PATIENT INFORMED OF ALL LABS RESULTS. ENCOURAGED TO FOLLOW UP WITH PCP WITHIN ONE WEEK OF DISCHARGE TO CONTINUE MEDICAL MANAGEMENT AND FOLLOW UP. Vital Signs Temperature 98.1 F 06/02/18 07:03 Pulse Rate 89 06/02/18 09:13 Respiratory Rate 18 06/02/18 07:03 Blood Pressure 144/90 06/02/18 09:13 O2 Sat by Pulse Oximetry (%) Laboratory Tests 05/23/18 05/23/18 05/23/18 08:30 08:30 08:30 WBC 5.2 RBC 3.08 L Hgb 11.8 Hct 33.8 MCV 109.8 H MCH 38.4 H MCHC 34.9 RDW 16.8 H Plt Count 227 MPV 7.5 Sodium 140 Potassium 4.3 Chloride 104 Carbon Dioxide 30 Anion Gap 6 L BUN 10 Creatinine 0.7 Creat Clearance w eGFR > 60 POC Glucometer Random Glucose 85 Calcium 9.3 Total Bilirubin 0.4 AST 99 H ALT 56 Alkaline Phosphatase 43 L Total Protein 7.0 Albumin 3.6 Urine Color Urine Appearance Urine pH Ur Specific [place] Urine Protein Urine Glucose (UA) Urine Ketones Urine Blood Urine Nitrite Urine Bilirubin Urine Urobilinogen Ur Leukocyte Esterase Urine WBC (Auto) Urine RBC (Auto) Ur Epithelial Cells Urine Mucus RPR Titer Nonreactive 05/23/18 05/23/18 05/31/18 10:00 11:26 08:30 WBC RBC Hgb Hct MCV MCH MCHC RDW Plt Count MPV Sodium Potassium 4.8 Chloride Carbon Dioxide Anion Gap BUN Creatinine Creat Clearance w eGFR POC Glucometer 137 Random Glucose Calcium Total Bilirubin AST ALT Alkaline Phosphatase Total Protein Albumin Urine Color Yellow Urine Appearance Clear Urine pH 6.0 Ur Specific [place] 1.013 Urine Protein Negative Urine Glucose (UA) Negative Urine Ketones Negative Urine Blood 1+ H Urine Nitrite Negative Urine Bilirubin Negative Urine Urobilinogen 2.0 H Ur Leukocyte Esterase Negative Urine WBC (Auto) 2 Urine RBC (Auto) 1 Ur Epithelial Cells Rare Urine Mucus Rare RPR Titer
[2018-06-02] MEDS: ATORVASTATIN CA 10 MG TABLET (FP) PO SCH (22:30)
[2018-06-02] MEDS: LIDOCAINE PATCH REMOVAL MC SCH (22:30)
[2018-06-03] MEDS ORDERED: PT OWN MED DRAWER 7, Y5N ONE ×2 (03:14→11:03)
[2018-06-03] MEDS: OMEPRAZOLE PO SCH (06:20)
[2018-06-03] MEDS: ASPIRIN 81 MG CHEWABLE TABLETS PO SCH (09:45)
[2018-06-03] MEDS: BUDESONIDE/FORMETEROL FUMARATE 160/4.5 mcg INHALER IH SCH ×2 (09:45→21:34)
[2018-06-03] MEDS: PRENATAL VITAMINS W/ FOLIC ACID TABLET (FP) PO SCH (09:46)
[2018-06-03] MEDS: LABETALOL HCL 100 MG TABLET (FP) PO SCH ×2 (09:46→21:32)
[2018-06-03] MEDS: FLUoxetine HCL 20 MG CAPSULE (FP) PO SCH (09:46)
[2018-06-03] MEDS: LORATADINE 10 MG TABLET PO SCH (09:46)
[2018-06-03] MEDS: NIFEdipine E.R. 90 MG TABLET (FP) PO SCH (09:48)
[2018-06-03] MEDS: FOLIC ACID PO SCH (09:49)
[2018-06-03] MEDS: FLUTICASONE PROP 0.05% 16 GM NASAL SPRAY NS SCH (09:49)
[2018-06-03] MEDS: LIDOCAINE 5% TOPICAL PATCH TP SCH (09:51)
[2018-06-03] MEDS: NALTREXONE HCL 50 MG TABLET PO SCH (12:18)
[2018-06-03] MEDS: LIDOCAINE PATCH REMOVAL MC SCH (21:31)
[2018-06-03] MEDS: THIAMINE HCL 100 MG TABLET (FP) PO SCH ×2 (21:32→21:33)
[2018-06-03] MEDS: ATORVASTATIN CA 10 MG TABLET (FP) PO SCH (21:33)
[2018-06-04] MEDS: OMEPRAZOLE PO SCH (06:30)
[2018-06-04] MEDS ORDERED: ALBUTEROL SO4 2.5/IPRATROPIUM 0.5 INH SOL 3 ML VIAL.NEB. NEB PRN (06:47)
[2018-06-04] MEDS: PANTOPRAZOLE 20 MG TABLET (FP) PO SCH (07:27)
[2018-06-04] MEDS: BUDESONIDE/FORMETEROL FUMARATE 160/4.5 mcg INHALER IH SCH ×2 (10:14→21:12)
[2018-06-04] MEDS: NALTREXONE HCL 50 MG TABLET PO SCH (10:14)
[2018-06-04] MEDS: FLUTICASONE PROP 0.05% 16 GM NASAL SPRAY NS SCH (10:15)
[2018-06-04] MEDS: ASPIRIN 81 MG CHEWABLE TABLETS PO SCH (10:15)
[2018-06-04] MEDS: PRENATAL VITAMINS W/ FOLIC ACID TABLET (FP) PO SCH (10:15)
[2018-06-04] MEDS: LABETALOL HCL 100 MG TABLET (FP) PO SCH ×2 (10:15→21:11)
[2018-06-04] MEDS: LORATADINE 10 MG TABLET PO SCH (10:16)
[2018-06-04] MEDS: NIFEdipine E.R. 90 MG TABLET (FP) PO SCH (10:16)
[2018-06-04] MEDS: FLUoxetine HCL 20 MG CAPSULE (FP) PO SCH (10:16)
[2018-06-04] MEDS: FOLIC ACID PO SCH (10:17)
[2018-06-04] MEDS: LIDOCAINE 5% TOPICAL PATCH TP SCH (10:17)
[2018-06-04] MEDS: ONDANSETRON *ODT* 4 MG TABLET SL PRN (12:13)
[2018-06-04] MEDS: MELATONIN 5 MG TABLETS PO PRN (21:11)
[2018-06-04] MEDS: LIDOCAINE PATCH REMOVAL MC SCH (21:12)
[2018-06-04] MEDS: ATORVASTATIN CA 10 MG TABLET (FP) PO SCH (21:12)
[2018-06-04] MEDS: THIAMINE HCL 100 MG TABLET (FP) PO SCH (21:12)
--- NOTE | 2018-06-05 06:04 | PN ---
[facility] Progress Note Note: Patient is discharged today. Script for 30 days supply of Prozac 20 mg po daily is electronically transmitted to [facility] at [address] [place] [address] [phone]
[2018-06-05] MEDS: PANTOPRAZOLE 20 MG TABLET (FP) PO SCH (06:22)
[2018-06-05 07:01] VITALS: TEMP 98.1
[2018-06-05] MEDS ORDERED: PT OWN MED DRAWER 7, Y5N ONE (07:14)
[2018-06-05 09:15] VITALS: BP 120/80; PULSE 79
--- NOTE | 2018-06-05 09:23 | PN ---
[facility] Progress Note Note: PT COMPLETED REHAB ABD DISCHARGED TODAY. PT MET WITH HER COUNSELOR AND REFERRED TO [facility] FOR CD AFTERCARE. PT HAS A PCP WITH [facility] ON [place], [place] AND REPORTS SHE HAS APPOINTMENT FOR FOLLOW UP ON 06/06/18. PT REPORTS SHE WILL START VIVITROL INJECTION ON 06/06/18 AT [facility] EARLIER PLANNED WITH COUNSELLING DURING REFERRAL PROCESS. PT REPORTS SHE HAS ALL HER MEDICATIONS. ALERT O X 3. DENIES S/H/I. Home Medications Medication Instructions Recorded Albuterol Sulfate Inhaler - 2 puff IH Q4H 05/22/18 [Ventolin HFA Inhaler -] Aspirin [ASA -] 81 mg PO DAILY 05/22/18 Fluticasone Propionate [Flovent 250 mcg IH PRN 05/22/18 Diskus] Labetalol HCl 300 mg PO BID 05/22/18 Naltrexone HCl 50 mg PO DAILY 05/22/18 Nifedipine ER [Procardia XL -] 90 mg PO DAILY 05/22/18 Pantoprazole Sodium [Protonix -] 20 mg PO DAILY 05/22/18 Thiamine HCl [Vitamin B-1] 100 mg PO DAILY 05/22/18 Vitamin B Complex [B Complex] 1 tablet PO DAILY 05/22/18 Azelastine HCl 1 - 2 sprays IH BID 05/23/18 Loratadine 1 tab PO DAILY 05/23/18 Atorvastatin Ca [Lipitor] 10 mg PO HS 05/24/18 Folic Acid - 1 mg PO DAILY 05/24/18 Omeprazole 1 cap PO DAILY 05/24/18 Fluoxetine HCl 20 mg PO DAILY #30 capsule 06/05/18 Vital Signs - 24 hr 06/04/18 06/05/18 06/05/18 21:10 06:53 09:15 Temperature 98.1 F Pulse Rate 80 86 79 Respiratory 18 Rate Blood Pressure 122/81 123/77 120/80 Laboratory Tests 05/23/18 05/23/18 05/23/18 08:30 08:30 08:30 WBC 5.2 RBC 3.08 L Hgb 11.8 Hct 33.8 MCV 109.8 H MCH 38.4 H MCHC 34.9 RDW 16.8 H Plt Count 227 MPV 7.5 Sodium 140 Potassium 4.3 Chloride 104 Carbon Dioxide 30 Anion Gap 6 L BUN 10 Creatinine 0.7 Creat Clearance w eGFR > 60 POC Glucometer Random Glucose 85 Calcium 9.3 Total Bilirubin 0.4 AST 99 H ALT 56 Alkaline Phosphatase 43 L Total Protein 7.0 Albumin 3.6 Urine Color Urine Appearance Urine pH Ur Specific [place] Urine Protein Urine Glucose (UA) Urine Ketones Urine Blood Urine Nitrite Urine Bilirubin Urine Urobilinogen Ur Leukocyte Esterase Urine WBC (Auto) Urine RBC (Auto) Ur Epithelial Cells Urine Mucus RPR Titer Nonreactive 05/23/18 05/23/18 05/31/18 10:00 11:26 08:30 WBC RBC Hgb Hct MCV MCH MCHC RDW Plt Count MPV Sodium Potassium 4.8 Chloride Carbon Dioxide Anion Gap BUN Creatinine Creat Clearance w eGFR POC Glucometer 137 Random Glucose Calcium Total Bilirubin AST ALT Alkaline Phosphatase Total Protein Albumin Urine Color Yellow Urine Appearance Clear Urine pH 6.0 Ur Specific [place] 1.013 Urine Protein Negative Urine Glucose (UA) Negative Urine Ketones Negative Urine Blood 1+ H Urine Nitrite Negative Urine Bilirubin Negative Urine Urobilinogen 2.0 H Ur Leukocyte Esterase Negative Urine WBC (Auto) 2 Urine RBC (Auto) 1 Ur Epithelial Cells Rare Urine Mucus Rare RPR Titer NAD MEDICALLY STABLE PLAN:FOLLOW UP WITH CD AFTERCARE ABOVE ON 06/06/18. FOLLOW UP WITH PCP AT [facility] ON 06/06/18.
[2018-06-05] MEDS: ASPIRIN 81 MG CHEWABLE TABLETS PO SCH (09:26)
[2018-06-05] MEDS: PRENATAL VITAMINS W/ FOLIC ACID TABLET (FP) PO SCH (09:26)
[2018-06-05] MEDS: LABETALOL HCL 100 MG TABLET (FP) PO SCH (09:26)
[2018-06-05] MEDS: NIFEdipine E.R. 90 MG TABLET (FP) PO SCH (09:26)
[2018-06-05] MEDS: LORATADINE 10 MG TABLET PO SCH (09:26)
[2018-06-05] MEDS: FLUoxetine HCL 20 MG CAPSULE (FP) PO SCH (09:26)
[2018-06-05] MEDS: FOLIC ACID PO SCH (09:27)
[2018-06-05] MEDS: FLUTICASONE PROP 0.05% 16 GM NASAL SPRAY NS SCH (09:27)
[2018-06-05] MEDS: LIDOCAINE 5% TOPICAL PATCH TP SCH (09:28)
[2018-06-05] MEDS: NALTREXONE HCL 50 MG TABLET PO SCH (09:29)
[2018-06-05] MEDS: BUDESONIDE/FORMETEROL FUMARATE 160/4.5 mcg INHALER IH SCH (09:30)
== END 2018-06-05 10:40 | disposition home or self-care (01) | DRG 772 ==
LOC: YASAS 15:35 → Y3E 21:35
PROVIDERS: ADMIT Neuromusculoskeletal Medicine & OMM; ATTEND Neuromusculoskeletal Medicine & OMM
PROC: HZ42ZZZ Group Counseling for Substance Abuse Treatment, Cognitive-Behavioral (ICD-10-PCS; principal; 2018-05-22)
DX: F10.20 Alcohol dependence, uncomplicated (principal); F32.9 Major depressive disorder, single episode, unspecified; I10 Essential (primary) hypertension; I25.2 Old myocardial infarction; L30.9 Dermatitis, unspecified; I83.93 Asymptomatic varicose veins of bilateral lower extremities; J45.909 Unspecified asthma, uncomplicated; K21.9 Gastro-esophageal reflux disease without esophagitis; M19.90 Unspecified osteoarthritis, unspecified site; M54.5 Low back pain; G47.00 Insomnia, unspecified; G89.29 Other chronic pain; R26.2 Difficulty in walking, not elsewhere classified; Z99.89 Dependence on other enabling machines and devices
CPT/HCPCS: 36415; 80053; 81003; 81015; 82962; 84132; 85027; 86593; 93005; 93010; Q0162